=== PATIENT | female | born 1965 | race Caucasian/White ===

== ENCOUNTER 2022-09-29 08:46 | Outpatient (CLI) | payer BC | END 2022-09-29 08:47 | disposition home or self-care (01) | LOC: SCSMRI 08:46 → SCSRAD 08:47 | PROVIDERS: ATTEND Nurse Practitioner Family | DX: S69.92XA Unspecified injury of left wrist, hand and finger(s), initial encounter (principal); S52.572D Other intraarticular fracture of lower end of left radius, subsequent encounter for closed fracture with routine healing ==